=== PATIENT | female | born 1945 | race Two or more races ===

== ENCOUNTER 2018-03-12 11:44 | Day surgery (SDC) | payer OTHER ==
[~2018-03-12 11:44] MED LIST: LIDOCAINE 4% (MPF) 5 ML INJ OPER
[2018-03-12] MEDS ORDERED: EPINEPHrine 1 MG INJ ×2 (11:53→14:48)
[2018-03-12] MEDS ORDERED: TOBRAMYCIN 0.3% 3.5 GM OPH OINT ×2 (11:54→14:11)
[2018-03-12] MEDS ORDERED: CARBACHOL 0.01% 1.5 ML OPH INJ ×2 (11:54→14:48)
[2018-03-12] MEDS: TETRACAINE 0.5% 4 ML OPH RIGHT EYE (12:53)
[2018-03-12] MEDS: TROPICAMIDE 1% 15 ML OPH OPER (12:54)
[2018-03-12] MEDS: PHENYLephrine 10% 5 ML OPH OPER (12:54)
[2018-03-12] MEDS: MOXIFLOXACIN 0.5% 3 ML OPH OPER (12:54)
[2018-03-12] MEDS: DICLOFENAC 0.1% 2.5 ML OPH OPER (12:55)
[2018-03-12] MEDS ORDERED: ONDANSETRON 4 MG INJ IV (13:00)
[2018-03-12] MEDS ORDERED: FENTAnyl 50 MCG/ML VIAL IV (13:00)
[2018-03-12] MEDS: LIDOCAINE 1.5%/EPI MPF (SDV) 30 ML VIAL INJ (13:45)
[2018-03-12] MEDS: SODIUM HYALURONATE 14 MG/ML SYG IO (13:45)
[2018-03-12] MEDS ORDERED: FENTAnyl 50 MCG/ML VIAL (13:56)
[2018-03-12] MEDS: TIMOLOL 0.5% 5 ML OPH RIGHT EYE (14:30)
[2018-03-12] MEDS: TOBRAMYCIN 0.3% 3.5 GM OPH OINT RIGHT EYE (14:30)
[2018-03-12] MEDS ORDERED: TIMOLOL 0.5% 5 ML OPH (14:44)
[2018-03-12] MEDS ORDERED: SODIUM HYALURONATE 14 MG/ML SYG (14:50)
[2018-03-12] MEDS: ACETAZOLAMIDE 250 MG TAB PO (16:01)
== END 2018-03-12 16:06 | disposition home or self-care (01) ==
LOC: SDS 11:44
DX: H26.8 Other specified cataract (principal); I10 Essential (primary) hypertension; E78.5 Hyperlipidemia, unspecified; E11.9 Type 2 diabetes mellitus without complications; Z79.84 Long term (current) use of oral hypoglycemic drugs
CPT/HCPCS: 66984; 71045; 82962

== ENCOUNTER 2018-05-07 05:30 | Day surgery (SDC) | payer OTHER ==
[2018-05-07] MEDS ORDERED: ERYTHROMYCIN 1 GM OPH OINT LEFT EYE (06:00)
[2018-05-07] MEDS: DICLOFENAC 0.1% 2.5 ML OPH OPER (06:21)
[2018-05-07] MEDS: TROPICAMIDE 1% 15 ML OPH OPER (06:21)
[2018-05-07] MEDS: MOXIFLOXACIN 0.5% 3 ML OPH OPER (06:21)
[2018-05-07] MEDS: PHENYLephrine 10% 5 ML OPH OPER (06:21)
[2018-05-07] MEDS ORDERED: TOBRAMYCIN 0.3% 3.5 GM OPH OINT (06:32)
[2018-05-07] MEDS ORDERED: LIDOCAINE 1%/EPI (1:100,000) (MDV) 20 ML (06:32)
[2018-05-07] MEDS ORDERED: CARBACHOL 0.01% 1.5 ML OPH INJ (06:32)
[2018-05-07] MEDS ORDERED: TETRACAINE 0.5% 4 ML OPH (06:33)
[2018-05-07] MEDS ORDERED: NA HYALURONATE/CHONDROITIN 0.5 ML SYG (06:33)
[2018-05-07] MEDS ORDERED: EPINEPHrine 1 MG INJ (06:33)
[2018-05-07] MEDS: LIDOCAINE 1%/EPI (1:100,000) (MDV) 20 ML INJ (07:00)
[2018-05-07] MEDS: SODIUM HYALURONATE 14 MG/ML SYG IO ×2 (07:00→08:10)
[2018-05-07] MEDS: LIDOCAINE 4% (MPF) 5 ML INJ OPER (07:23)
[2018-05-07] MEDS ORDERED: TIMOLOL MALEATE/PF 0.5% OCCUDOSE (0.3 ML) (07:28)
[2018-05-07] MEDS ORDERED: ALBUTEROL 0.083% (NEB) 2.5 MG/3 ML AMP HHN (07:30)
[2018-05-07] MEDS ORDERED: OXYCODONE/ACETAMINOPHEN (5/325) TAB PO (07:30)
[2018-05-07] MEDS ORDERED: hydrALAzine 20 MG INJ IV (07:30)
[2018-05-07] MEDS ORDERED: ACETAMINOPHEN 325 MG TAB PO (07:30)
[2018-05-07] MEDS ORDERED: LABETALOL HCL 20MG INJ IV (07:30)
[2018-05-07] MEDS ORDERED: FENTAnyl 50 MCG/ML VIAL IV (07:30)
[2018-05-07] MEDS ORDERED: DIPHENHYDRAMINE 50 MG INJ IV (07:30)
[2018-05-07] MEDS ORDERED: ACETAMINOPHEN 500 MG TAB PO (07:30)
[2018-05-07] MEDS ORDERED: ONDANSETRON 4 MG INJ IV (07:30)
[2018-05-07] MEDS ORDERED: MIDAZOLAM 1 MG/ML 2 ML INJ (07:35)
[2018-05-07] MEDS: TIMOLOL 0.5% 5 ML OPH LEFT EYE (08:10)
[2018-05-07] MEDS: ACETAZOLAMIDE 250 MG TAB PO (08:57)
== END 2018-05-07 09:46 | disposition home or self-care (01) ==
LOC: SDS 05:30
DX: H26.8 Other specified cataract (principal); I10 Essential (primary) hypertension; E78.5 Hyperlipidemia, unspecified; E11.9 Type 2 diabetes mellitus without complications
CPT/HCPCS: 66984; 82962